=== PATIENT | female | born 1985 | race Caucasian/White ===

== ENCOUNTER 2021-09-28 08:35 | Emergency (ER) | payer OTHER, SELFPAY ==
[2021-09-28 08:35] VITALS: BP 136/96; PULSE 51; RESP 18; TEMP 36.6; O2SAT 98; BMI 39.1
--- NOTE | 2021-09-28 08:52 | ED.EXTPRO ---
HPI - Extremity Problem General Chief complaint: Extremity Injury, Upper Stated complaint: Left Shoulder Pain Time Seen by Provider: 09/28/21 08:51 Source: patient Mode of arrival: Ambulatory Limitations: no limitations History of Present Illness HPI Narrative: This is a 36 year old female comes in with complaint of left shoulder pain particularly with elevation over her head and abduction. 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 Patient denies any numbness or tingling. No weakness. She has minimal pain with flexion extension but significantly higher than elevated overhead. She has not had any warmth, tingling, numbness or other changes. She does not appreciate any weakness. Patient tried Tylenol. She likes to avoid oral medications that she had a overdose on Darvocet when she was much younger. She denies any other major medical issues. She states she is allergic to Flagyl. Related Data Previous Rx's Medication Instructions Recorded lidocaine 5 % topical patch 1 patch TOPICAL DAILY PRN #15 ea 09/28/21 Allergies Allergy/AdvReac Type Severity Reaction Status Date / Time No Known Drug Allergies Allergy Verified 09/28/21 08:49 Review of Systems Review of Systems ROS Unobtainable: All systems reviewed & are unremarkable except as noted in HPI and below Patient History Social History Smoking Status: Never smoker Exam Narrative Exam Narrative: GENERAL: Alert and oriented x three, female in mild distress. HEENT: Head normocephalic, atraumatic, EOMI, pupils reactive, face symmetric, moist mucous membranes NECK: Supple, full range of motion CARDIOVASCULAR: Regular rate and rhythm without murmurs, rubs or gallops. RESPIRATORY: Breath sounds equal bilaterally, no wheezes rales or rhonchi. ABDOMEN: Soft, nontender. Normoactive bowel sounds all 4 quadrants. No guarding or rebound, rigidity, no mass EXTREMITIES: Normal range of motion, no clubbing or edema. Neurovascularly intact. Patient has tenderness at the left bicep but mild, tenderness greater above over the AC joint. No warmth, erythema or skin changes. Patient has full range of motion. She does not have crepitus or grinding. NEUROLOGICAL: Cranial nerves II through XII grossly intact. Moving all extremities SKIN: Warm, dry, no petechiae, no rashes or lesions. Initial Vital Signs Initial Vital Signs: Vital Signs Temperature 98 F 09/28/21 08:35 Pulse Rate 51 L 09/28/21 08:35 Respiratory Rate 18 09/28/21 08:35 Blood Pressure 136/96 H 09/28/21 08:35 Pulse Oximetry 98 09/28/21 08:35 Course Orders Ordered: Discontinued Medications Lidocaine (Lidocaine Patch 1 Each Adh..Patch) 1 each TOP NOW ONE Stop: 09/28/21 09:19 Last Admin: 09/28/21 09:32 Dose: 1 each Documented by: [facility]W[place] Vital Signs Vital signs: Vital Signs - 8 hr 09/28/21 08:35 09/28/21 09:00 09/28/21 09:41 Temperature 98 F Pulse Rate 51 L 60 58 L Respiratory Rate 18 18 18 Blood Pressure 136/96 H 150/70 H Pulse Oximetry 98 98 98 MDM - Extremity (Nontraumatic) Imaging Data Extremity x-ray #1: Radiologist's Impression: [place] [address] XRay Report Signed Patient: Brenda Estrada MR#: [id number] : 1985 Acct:[id number] Age/Sex: 36 / F Date of Service: 09/28/21 Loc: Accession Number: [id number] ?? Procedure: XR shoulder LT min 2V Ordering Provider: Johana Pringle D.O. PROCEDURE:? XR SHOULDER LT MIN 2V ? INDICATIONS:? left shouder pain, atraumatic, worse with abduction ? TECHNIQUE:? 3 views of the shoulder were acquired.? ? COMPARISON:? None. ? FINDINGS:? ? Bones:? No fractures or dislocations.? No suspicious bony lesions.? Visualized ribs appear intact.? ? Soft tissues:? No suspicious soft tissue calcifications.? ? IMPRESSION:? No radiographic abnormalities. ? ? ? Dictated by: Jackie Schroeder M.D. on 09/28/2021 at 9:52 ? ? Approved by: Jackie Schroeder M.D. on 09/28/2021 at 9:52?? [facility] Narrative Medical decision making narrative: This is a pleasant 36-year-old female with left shoulder pain that is reproducible, particularly worse with movement above her shoulder. Patient does not recall any trauma but does quite a bit of lifting and moving. Patient has point tenderness over the AC and biceps joint. X-ray does not show any clear changes or calcific tendinitis. Plan for lidocaine patch locally, ibuprofen/Tylenol as needed sling as needed and patient has follow-up already scheduled this coming Friday a week from now. Return precautions discussed. All questions answered. Discharge Plan Departure Patient Disposition: Home Clinical Impression: Left shoulder pain Instructions: DI for Shoulder Pain Activity Restrictions/Additional Instructions: Follow-up with your physician at your appointment scheduled next week. Your imaging today shows no acute change. You can use lidocaine patch to the affected area daily. Prescription sent to [facility] pharmacy You may take Tylenol up to 1000 mg every 6 hours as needed for pain if you are comfortable. If you prefer a can take ibuprofen up to 600 mg every 6 hours. Try to decrease your use of your upper extremity as possible, you may use sling as needed. Make sure you do severe shoulder through range of motion several times daily to prevent frozen shoulder. Please return for fevers, rapidly worsening pain, redness, warmth or difficulty with movement, loss of sensation, new swelling of her arm or other new or concerning symptoms. Prescriptions: New lidocaine 5 % adhesive patch,medicated 1 patch topical DAILY PRN (Reason: pain) Qty: 15 0RF Rx Instructions: leave on most painful area for up to 12 hrs
[2021-09-28 09:00] VITALS: BP 150/70; PULSE 60; RESP 18; O2SAT 98
--- NOTE | 2021-09-28 09:18 | DI.RAD.S_ITS ---
PROCEDURE: XR SHOULDER LT MIN 2V INDICATIONS: left shouder pain, atraumatic, worse with abduction TECHNIQUE: 3 views of the shoulder were acquired. COMPARISON: None. FINDINGS: Bones: No fractures or dislocations. No suspicious bony lesions. Visualized ribs appear intact. Soft tissues: No suspicious soft tissue calcifications. IMPRESSION: No radiographic abnormalities. Dictated by: Jackie Schroeder M.D. on 09/28/2021 at 9:52 Approved by: Jackie Schroeder M.D. on 09/28/2021 at 9:52
[2021-09-28] MEDS: LIDOCAINE PATCH 1 EACH ADH..PATCH TOP (09:32)
[2021-09-28 09:41] VITALS: PULSE 58; RESP 18; O2SAT 98
== END 2021-09-28 10:26 | disposition home or self-care (01) ==
PROVIDERS: Emergency Provider Emergency Medicine
DX: M25.512 Pain in left shoulder (principal)
CPT/HCPCS: 73030; 99283